=== PATIENT | male | born 1975 | race Caucasian/White ===

== ENCOUNTER 2025-01-31 08:44 | Emergency (ER) | payer MEDICAID, SELFPAY ==
[2025-01-31 08:46] VITALS: BP 109/68; PULSE 93; RESP 18; TEMP 36.8; O2SAT 96; BMI 33.8
--- NOTE | 2025-01-31 08:55 | CT_ITS ---
PROCEDURE: CT abdomen and pelvis with IV contrast. 01/31/2025 REASON FOR EXAM: LOW BACK PAIN, HX OF MULTIPLE MYELOMA, L2 FX OLD TECHNIQUE: Abdomen and pelvis CT with intravenous contrast. Coronal and Sagittal reconstruction series were provided. PATIENT PREPARATION: Per protocol ORAL CONTRAST TYPE: None. CONTRAST: Isovue 300 VOLUME: 94 mL One or more dose reduction techniques were used (e.g., Automated exposure control, adjustment of the mA and/or kV according to patient size, use of iterative reconstruction technique. RADIATION DOSE SUMMARY: CTDlvol: 31.43 mGy DLP: 1037.37 mGycm COMPARISON: None. FINDINGS: Lung bases: There is scarring or atelectasis in the inferior segment of the lingula and in the posterior basilar segment of both lower lobes. There are no pleural effusions. The heart size is normal. There is no pericardial effusion. Liver: There is a 4 mm cyst in the liver dome. Gallbladder: Normal. Spleen: There is mild splenomegaly with the spleen measuring 13.1 cm in axial dimension. There are benign calcified splenic granulomas. Pancreas: Normal. Adrenals: Normal. Kidneys: Normal. Bladder: Normal unenhanced appearance. Reproductive Organs: The prostate gland is normal in size. The seminal vesicles are normal. There is no free fluid in the pelvis. There are few reactive pelvic and bilateral inguinal lymph nodes. Bowel: No significant abnormality. Appendix: Normal. Lymph nodes: There is no significant mesenteric or retroperitoneal lymphadenopathy. Vasculature: The abdominal aorta, inferior vena cava, and portal venous system are normal. Abdominal wall: There is a 2.0 cm in diameter umbilical hernia containing normal fat. Bones: There is multilevel degenerative disc disease of the lumbar spine. There is moderate compression of the superior endplates of L1 and L2. There are innumerable lytic foci in the visualized spine and pelvis consistent with multiple myeloma. There is a large expansile lytic lesion in the left ischium. CT/Abdomen/Pelvis W IV Cont ONLY IMPRESSION: 1. Innumerable lytic foci in the visualized skeleton consistent with multiple myeloma. 2. Mild splenomegaly. 3. Other findings as noted. Reading Location: [id number]
--- NOTE | 2025-01-31 08:59 | EDS_ITS ---
HPI History of Present Illness Chief Complaint: Back Narrative Narrative: Patient is a 49-year-old male with a past medical history of multiple myeloma actively getting treatment at [facility], history of old L2 fracture who presents to the emergency department with a chief complaint of back pain. Patient states that earlier this morning he developed a cramp in his leg he states that he went to stand up and he notes that he stepped on the dog causing him to fall. He states that he landed directly on his buttocks and he did not hit his head did not pass out. He states that he is not on any blood thinning medications. Patient states that he was unable to get up off the floor secondary to the pain therefore he called EMS to have him brought here for further evaluation management. PFSH [facility] Home Medications ?Medication ?Instructions ?Recorded ?Last Taken ?Type cyclobenzaprine 10 mg tablet 10 mg PO TID PRN muscle s pasm #20 01/31/25 Unknown Rx tabs lidocaine 5 % topical patch 1 patch topical DAILY #15 ea 01/31/25 Unknown Rx (Lidoderm) ondansetron 4 mg disintegrating 4 mg PO Q6H PRN nausea and 01/31/25 Unknown Rx tablet vomiting #20 tabs oxycodone-acetaminophen 5 mg-325 1 tab PO Q6H PRN pain 3 days #12 01/31/25 Unknown Rx mg tablet (Endocet) tabs Allergy/AdvReac Type Severity Reaction Status Date / Time erythromycin base Allergy Severe Anaphylaxis Verified 01/31/25 08:46 Social History Smoking Status: Former smoker ROS ROS ED ROS Narrative Constitutional: Denies headache, lightness, dizziness Abdomen: Denies abdominal pain nausea vomit diarrhea : Denies urinary symptoms Neurological: Denies numbness, wheeze, tingling Musculoskeletal: Complains of low back pain as noted above Skin: Denies rashes or lesions EXAM Physical Exam Narrative Exam Narrative: general: Patient lying in bed did appear to be uncomfortable secondary to his back pain Head: Atraumatic, normocephalic Eyes: PERRL bilaterally, EOMI bilaterally, no conjunctival injection noted Neck: Soft, supple, trachea midline Cardiovascular: Regular rate and rhythm Respiratory: Clear to auscultation bilaterally Abdomen: Soft, nondistended, nontender to palpation Musculoskeletal: Lower back pain noted, all other bony prominences palpated joints taken to full range of motion no pain elicited Extremities: +5/5 strength noted in the bilateral upper and lower extremities Neurological: Patient following commands knew that he was at [facility] the year is 2024 Skin: Warm, dry, intact no rashes or lesions noted Const Vital Signs: 01/31/25 08:46 01/31/25 11:10 01/31/25 13:00 Temperature 98.3 F Temperature Source Oral Pulse Rate 93 75 67 Respiratory Rate 18 16 15 Blood Pressure 109/68 132/67 H 108/63 Blood Pressure Mean 81 88 78 Pulse Ox 96 97 97 Oxygen Delivery Method Room Air Room Air Room Air MDM MDM MDM Narrative Medical decision making narrative: Patient is a 49-year-old male who presents to the emergency department chief complaint of fall and low back pain. On the differential diagnose includes but not limited to lumbar compression fracture, sacral fracture, hip fracture although feel this less likely as I was able to logroll him without significant pain. Once workup is obtained reviewed he will be reevaluated. Patient already received 1 mg of Dilaudid and Zofran prehospital by EMS. Will add on Norflex. Patient still having pain he was given another dose of Norflex. Patient BMP reviewed showed sodium was 134, potassium 4.3, creatinine was 0.92. Patient's EKG reviewed showed sinus rhythm with a rate of [address] ab pelvis with IV contrast showed numerable lytic foci in the visualized skeleton consistent with multi myeloma mild splenomegaly. He has a moderate compression of the superior endplates L1-L2. He has a large expansile lytic lesion in the left ischium. Patient got up and ambulated to the bathroom a few times without any difficulty. I paged Dr. Shearer spine and was notified that him and his partner are out of town currently for the next several days. I reached out to [facility] spine/Ortho team as he has had care there in the past. I discussed with them Dr. Boykin who went discussed with the on-call spine surgeon that he was operating in a case and they advised him to follow-up in the outpatient setting and pain control. I discussed this plan with the patient he is agreeable this plan he like to go home. Patient will given multiple prescriptions including Lidoderm patch, [place] cyclobenzaprine, Percocet, Zofran. He is advised operating thing under the influence of the Percocet and the muscle laxer. He is he is advised to use the Percocet for severe pain and rotate Tylenol and ibuprofen [id number] for mild to moderate pain. He is agreeable this plan as well as significant other bedside all question concerns answered discharged home in stable condition. Lab Data Labs: Laboratory Results - last 24 hr 01/31/25 09:08 Sodium 134 Potassium 4.3 Chloride 105 Carbon Dioxide 22.6 Anion Gap 6 BUN 14 Creatinine 0.92 Estim Creat Clear Calc 123.40 Est GFR (MDRD) Non-Af 100 BUN/Creatinine Ratio 14.8 Glucose 118 H Calcium 8.3 Radiography Diagnostic Testing: Clinical Impression(s) from Imaging Studies Abdomen/Pelvis CT 01/31/25 08:55 IMPRESSION: 1. Innumerable lytic foci in the visualized skeleton consistent with multiple myeloma. 2. Mild splenomegaly. 3. Other findings as noted. Reading Location: [facility] Discharge Plan Triage Chief Complaint: Back ED Provider: Chris Guaman Dx/Rx/DC Orders Clinical Impression: Compression fx, lumbar spine, Fall Prescriptions: New lidocaine [Lidoderm] 5 % adhesive patch,medicated 1 patch topical DAILY Qty: 15 0RF Rx Instructions: leave on most painful area for up to 12 hrs cyclobenzaprine 10 mg tablet 10 mg PO TID PRN (Reason: muscle spasm) Qty: 20 0RF ondansetron 4 mg tablet,disintegrating 4 mg PO Q6H PRN (Reason: nausea and vomiting) Qty: 20 0RF oxycodone-acetaminophen [Endocet] 5-325 mg tablet 1 tab PO Q6H PRN (Reason: pain) 3 Days Qty: 12 0RF Primary Care Provider: Lety Stanford FIELD SALES SPECIALIST Referrals: Ramy Ruiz MD [Med Staff - Active Staff] - Ayleen Pagan MD [Non-Staff] - Activity Restrictions/Additional Instructions: Take medications as prescribed. Rotate Tylenol and ibuprofen [id number] you can take something every 3 hours. Max dose of ibuprofen in 24 hours 3200 mg, max dose of Tylenol and 4000 mg in 24 hours. Use the Percocet and Zofran for severe pain. Do not operate anything under the influence of the narcotic or the muscle relaxer. Follow-up with the spine surgeon that you were referred to or you can follow-up with the orthospine team at [facility] Dr. [facility]. Return with any other concerns. Print Language: Citizen Of [place] Disposition Disposition: Home, Self Care
[2025-01-31] MEDS: 0.9% Normal Saline (1000mL) 1,000 ML 999 ML IV (09:05)
[2025-01-31] MEDS: Orphenadrine 60 MG/2 ML Ampul 30 MG IV ×2 (09:05→11:45)
[2025-01-31 09:43] LABS: Anion Gap 6 (5-15); BUN 14 mg/dL (4-19); BUN/Creat Ratio 14.8 RATIO (10-20); Calcium,Total 8.3 mg/dL (7.6-11.0); Carbon Dioxide 22.6 mmol/L (21.0-32.0); Chloride 105 mmol/L (98-108); Creatinine, Serum 0.92 mg/dL (0.70-1.20); EST Glomerular Filtration Rate 100 (>60); Glucose 118 mg/dL (70-99); Potassium 4.3 mmol/L (3.3-5.1); Sodium Level 134 mmol/L (133-145)
[2025-01-31 11:10] VITALS: BP 132/67; PULSE 75; RESP 16; O2SAT 97
[2025-01-31] MEDS: Ketorolac 30 MG/ML Syringe IV (11:44)
[2025-01-31 13:00] VITALS: BP 108/63; PULSE 67; RESP 15; O2SAT 97
[2025-01-31 14:33] VITALS: BP 115/62; PULSE 70; RESP 15; TEMP 36.1; O2SAT 97
== END 2025-01-31 14:35 | disposition home or self-care (01) ==
PROVIDERS: Emergency Provider Emergency Medicine; PCP Nurse Practitioner Family; Visit Provider Emergency Medicine
DX: S32.019A Unspecified fracture of first lumbar vertebra, initial encounter for closed fracture (principal); C90.00 Multiple myeloma not having achieved remission; W18.31XA Fall on same level due to stepping on an object, initial encounter; M89.8X5 Other specified disorders of bone, thigh; Z87.891 Personal history of nicotine dependence
CPT/HCPCS: 74177; 80048; 96361; 96374; 96375; 96376; 99285; Q9967; A4216

== ENCOUNTER 2025-04-02 14:05 | Emergency (ER) | payer MEDICAID, SELFPAY ==
[2025-04-02 14:05] VITALS: BP 145/88; PULSE 98; RESP 20; TEMP 36.5; O2SAT 100; BMI 30.7
[2025-04-02 14:28] VITALS: O2SAT 97
--- NOTE | 2025-04-02 14:28 | EKG12_ITS ---
Test Reason : cp Blood Pressure : */* mmHG Vent. Rate : 87 BPM Atrial Rate : 87 BPM P-R Int : 138 ms QRS Dur : 92 ms QT Int : 362 ms P-R-T Axes : 26 31 24 degrees QTcB Int : 435 ms Normal sinus rhythm with sinus arrhythmia Normal ECG Confirmed by DAWIT ZARCO, AZIZA ([id number]), publication editor SHIVAM FRITZ ([id number]) on 04/03/2025 9:27:43 AM Referred By: Confirmed By: AZIZA PASTOR MD
--- NOTE | 2025-04-02 14:28 | CT_ITS ---
PROCEDURE: CTA CHEST W/WO CONTRAST 04/02/2025 REASON FOR EXAM: 2 day history of chest pain. History of multiple myeloma. TECHNIQUE: CTA CHEST W/WO CONTRAST Multiplanar Sagittal and Coronal images were obtained. 3D post processing was performed CONTRAST: Isovue 3 7 VOLUME: 100 mL One or more dose reduction techniques were used (e.g., Automated exposure control, adjustment of the mA and/or kV according to patient size, use of iterative reconstruction technique). RADIATION DOSE SUMMARY: CTDlvol: 11.7 mGy DLP: 499 mGycm COMPARISON: None FINDINGS: Hardware: None Lymph nodes: Small benign-appearing bilateral axillary lymph nodes. Heart: The heart is nonenlarged. No coronary artery calcification is seen. Thoracic Aorta: Unremarkable Pulmonary Vessels: No pulmonary embolism is seen. Lungs and Airways: There is a 5.4 mm noncalcified nodule in the posterior superior aspect of the right lower lobe. This is pleural-based. No definite calcium is seen within it. Minimal linear atelectasis and/or scarring seen at the right lung base. Mild bibasilar bronchiectasis. Pleura: No pleural effusion. Upper Abdomen: Mild splenomegaly. The gallbladder is contracted. Bones: Osteopenia of the visualized dorsal vertebrae with multiple tiny lucencies in keeping with the patient's history of multiple myeloma. CT/CTA Chest W/WO Contrast IMPRESSION: No evidence of pulmonary embolism. 5.4 mm noncalcified nodule in the posterior aspect of the superior segment of t he right lower lobe. A 12 month follow-up examination recommended. Mild linear scarring and/or atelectasis at the right lung base with mild bibasi lar bronchiectasis. Multiple lucency seen throughout the thoracic vertebrae as well as the visualiz ed ribs and scapula in keeping with the patient's history of multiple myeloma. Reading Location: [facility]
--- NOTE | 2025-04-02 14:29 | ED.VIS.CHEST ---
HPI History of Present Illness Chief Complaint: Chest Pain Informant: patient Onset/Context/Timing Onset: Days (3) Activity at onset: sudden Timing: Continuous Quality: Positive for Pressure Location: Right Chest Worsened By: Breathing Relieved By: Rest Associated Symptoms: Negative for Nausea, Vomiting, Diaphoresis, Dyspnea, Cough, Fever, Lightheadedness, Acid Reflux or Palpitations Narrative Narrative: Patient presents with right-sided chest pain for the past 3 days. Patient describes it as a pressure. Patient states his only over the right side of his chest. Patient states it is constant. Patient states it began rather suddenly. Patient states it is worse with breathing. Patient states it is better with rest. Patient denies any shortness of breath but just states it hurts to take a deep breath. Patient denies any cough or fever. Patient denies any nausea or vomiting. Patient denies any diaphoresis. Patient does have a history of multiple myeloma and is undergoing treatment for that. CVD Risk Factors: Negative for Hypertension, Diabetes, Hypercholesterolemia, Family History 1' </=55 or Smoking PE Risk Factors: Positive for Cancer; Negative for Recent Travel/Surgery, Recent Immobilization, Prior DVT or PE or OCP + Smoking + >/=35 [facility] Medical History (Updated 04/02/25 @ 16:[address] Vitor Luna, ) Multiple myeloma Home Medications ?Medication ?Instructions ?Recorded ?Last Taken ?Type acetaminophen 500 mg capsule 500 mg PO DAILY 04/02/25 04/02/25 History acyclovir 400 mg tablet 400 mg PO BID 04/02/25 04/02/25 History aspirin 81 mg chewable tablet 1 tab PO DAILY 04/02/25 04/02/25 History lenalidomide 20 mg capsule 20 mg PO DAILY 04/02/25 04/01/25 History (Revlimid) sulfamethoxazole 800 1 tab PO MOWEFR 04/02/25 04/02/25 History mg-trimethoprim 160 mg tablet Allergy/AdvReac Type Severity Reaction Status Date / Time erythromycin base Allergy Severe Anaphylaxis Verified 04/02/25 14:25 Surgical History no surgical history no surgical history Social History Smoking Status: Former smoker ROS ROS ED Constitutional Constitutional ED: Denies chills or fever(s) Eyes Eyes: Denies blurry vision or change in vision ENT ENT ED: Denies rhinorrhea or sore throat Cardiovascular Cardiovascular: Reports chest pain; Denies palpitations Respiratory/Chest Respiratory/Chest: Denies cough or dyspnea Gastrointestinal Gastrointestinal: Denies nausea or vomiting Genitourinary Genitourinary ED: Denies dysuria or hematuria Musculoskeletal Musculoskeletal: Reports back pain; Denies neck pain Integumentary Denies abscess or rash Neurologic Neurologic: Denies headache(s) or weakness Allergic/Immunologic Allergic/Immunologic ED: Denies mouth swelling or urticaria EXAM Physical Exam Const Vital Signs: 04/02/25 14:05 04/02/25 14:23 04/02/25 14:28 Temperature 97.7 F L Temperature Source Temporal Pulse Rate 98 Respiratory Rate 20 H Respiratory Effort Normal Blood Pressure 145/88 H Blood Pressure Mean 107 Pulse Ox 100 97 Oxygen Delivery Method Room Air Room Air 04/02/25 14:58 04/02/25 15:44 04/02/25 16:00 Temperature Temperature Source Pulse Rate 90 88 88 Respiratory Rate 19 H 19 H Respiratory Effort Blood Pressure 122/88 H 136/77 H 125/80 H Blood Pressure Mean 96 95 Pulse Ox 97 98 Oxygen Delivery Method Room Air Room Air Positive well nourished and well developed Constitutional Narrative: BMI is 30.8. General Appearance ED: well developed and NAD HEENT Reports moist mucous membranes Neck supple and no JVD Chest Wall palpation of chest normal Resp normal respiratory effort and clear to auscultation bilaterally Cardio regular rate and regular rhythm GI soft to palpation, non-tender and non-distended Extremity normal to inspection General Extremety ED: Negative for edema or tenderness General Extremity: Negative for edema Neuro oriented x3, CN's II-XII intact bilaterally and no sensory deficits noted Sensorium / Orientation: awake and alert Motor Exam: strength 5/5 throughout Psych mental status grossly normal MDM MDM MDM Narrative Medical decision making narrative: Differential diagnosis includes pulmonary embolism, cardiac dysrhythmia, cardiac ischemia, pneumonia, bronchitis, electrolyte abnormality, and musculoskeletal pain. EKG will be obtained to assess for cardiac dysrhythmia and cardiac ischemia. CT of the chest will be obtained to assess for pulmonary embolism and pneumonia. CBC will be obtained to assess for leukocytosis and anemia. Basic metabolic profile will be obtained to assess for electrolyte abnormality and renal function. High-sensitivity troponin will be obtained to assess for cardiac ischemia. History & Record Review Additional record(s) reviewed:: Prior ED visit and Prior labs Lab Data Attestation: I reviewed the patient's lab results. Lab results narrative: CBC was reviewed. There is a slight anemia with a hemoglobin of 12.9 and hematocrit 37.4. The remainder is within normal limits. Basic metabolic profile was reviewed. Glucose was slightly elevated at 167. The remainder is within normal limits. High-sensitivity troponin was reviewed and was normal. Labs: Laboratory Results - last 24 hr 04/02/25 14:40 WBC 4.4 RBC 4.15 L Hgb 12.9 L Hct 37.4 L MCV 90.1 MCH 31.1 MCHC 34.5 RDW Std Deviation 46.1 H RDW Coeff of Jesus 14.0 Plt Count 186 MPV 10.9 Immature Gran % (Auto) 0.200 Neut % (Auto) 46.9 L Lymph % (Auto) 31.4 [place] % (Auto) 12.0 H Eos % (Auto) 8.8 H Baso % (Auto) 0.7 Absolute Neuts (auto) 2.1 Absolute Lymphs (auto) 1.39 Nucleated RBC % 0 Sodium 138 Potassium 3.5 Chloride 103 Carbon Dioxide 22.7 Anion Gap 12 BUN 10 Creatinine 0.94 Estim Creat Clear Calc 115.35 Est GFR (MDRD) Non-Af 98 BUN/Creatinine Ratio 10.1 Glucose 167 H Calcium 8.6 Troponin T High Sens 7 Radiography Diagnostic Testing: Clinical Impression(s) from Imaging Studies Chest CTA 04/02/25 14:28 IMPRESSION: No evidence of pulmonary embolism. 5.4 mm noncalcified nodule in the posterior aspect of the superior segment of the right lower lobe. A 12 month follow-up examination recommended. Mild linear scarring and/or atelectasis at the right lung base with mild bibasilar bronchiectasis. Multiple lucency seen throughout the thoracic vertebrae as well as the visualized ribs and scapula in keeping with the patient's history of multiple myeloma. Reading Location: [id number] CTA of the chest was obtained. There is no evidence of pulmonary embolism. There is a 5.4 mm noncalcified nodule in the posterior right lower lobe. There are multiple lucencies consistent with multiple myeloma. There is no aortic dissection. There is no acute abnormality noted. This was interpreted by the radiologist and was also independently reviewed by myself. EKG Initial EKG: Attestation: I personally reviewed and interpreted this EKG as follows: Interpretation: Sinus Rhythm (87) and No Acute Injury Pattern Comments: EKG was obtained. On my independent interpretation, it showed a normal sinus rhythm with a rate of 87. [place] interval, QRS interval, and QTc intervals were all normal. [place] was normal. There are no acute ST or T wave changes. Prior EKG tracings: not available for review Prior: No Prior Treatment and Re-Evaluation :: Patient was given aspirin and sublingual nitroglycerin. Patient was feeling better on reevaluation. Patient was advised of his findings. Patient was instructed to follow-up with his primary care physician in 5 to 7 days. Patient was to take Tylenol or ibuprofen as needed for pain. Patient was instructed to return if worse in any way. Patient understood and was agreeable with the plan. All questions were answered. Discharge Plan Triage Chief Complaint: Chest Pain ED Provider: Vitor Luna Dx/Rx/DC Orders Clinical Impression: Right-sided chest pain, Multiple myeloma Instructions: ED Chest Pain, Uncertain Cause Prescriptions: No Action acyclovir 400 mg tablet 400 mg PO BID sulfamethoxazole-trimethoprim 800-160 mg tablet 1 tab PO MOWEFR lenalidomide [Revlimid] 20 mg capsule 20 mg PO DAILY Rx Instructions: 14 DAYS ON 7 DAYS OFF acetaminophen 500 mg capsule 500 mg PO DAILY aspirin 81 mg tablet,chewable 1 tab PO DAILY Primary Care Provider: Lety Stanford NP Referrals: Lety Stanford NP, INFORMATION TECHNOLOGY AUDITOR-C [Primary Care Provider] - 5-7 Days Print Language: Frisian Disposition Disposition: Home, Self Care
[2025-04-02 14:47] LABS: Hematocrit 37.4 % (40-54); Hemoglobin 12.9 g/dL (13.0-16.5); Immature Granulocytes Count 0.010 X10^3/uL (0.0-0.0); Mean Corp Hgb Conc 34.5 g/dL (32-36); Mean Corpuscular Volume 90.1 fL (80-94); Mean Platelet Vol. 10.9 fl (6.2-12.0); NRBC Flagged by Analyzer 0 % (0-5); Platelet Count 186 K/mm3 (150-450); RBC Distribution Width CV 14.0 % (11.6-14.6); RBC Distribution Width SD 46.1 fl (35.1-43.9); Red Blood Count 4.15 M/mm3 (4.6-6.2); White Blood Count 4.4 K/mm3 (4.4-11.0)
[2025-04-02 14:58] VITALS: BP 122/88; PULSE 90
[2025-04-02] MEDS: Nitroglycerin SL (ED/IMG/CATH) 0.4 MG TABLET SL (14:58)
[2025-04-02 15:36] LABS: Anion Gap 12 (5-15); BUN 10 mg/dL (4-19); BUN/Creat Ratio 10.1 RATIO (10-20); Calcium,Total 8.6 mg/dL (7.6-11.0); Carbon Dioxide 22.7 mmol/L (21.0-32.0); Chloride 103 mmol/L (98-108); Estimated Creatinine Clearance 115.35 ml/min (50-250); Glucose 167 mg/dL (70-99); Potassium 3.5 mmol/L (3.3-5.1); Troponin T High Sensitivity 7 ng/L (<=22)
[2025-04-02 15:44] VITALS: BP 136/77; PULSE 88; RESP 19; O2SAT 97
[2025-04-02 16:00] VITALS: BP 125/80; PULSE 88; RESP 19; O2SAT 98
[2025-04-02 16:29] VITALS: BP 125/80; PULSE 84; RESP 16; TEMP 36.6; O2SAT 100
== END 2025-04-02 16:33 | disposition home or self-care (01) ==
PROVIDERS: Emergency Provider Emergency Medicine; PCP Nurse Practitioner Family; Visit Provider Emergency Medicine
DX: R07.9 Chest pain, unspecified (principal); C90.00 Multiple myeloma not having achieved remission; Z87.891 Personal history of nicotine dependence; Z79.82 Long term (current) use of aspirin
CPT/HCPCS: 71275; 80048; 84484; 85025; 93005; 99283; Q9967; A4216